=== PATIENT | male | born 1995 | race American Indian/Alaskan Native ===

== ENCOUNTER 2021-11-15 21:55 | Emergency (ER) | payer SELFPAY ==
[2021-11-15] MEDS ORDERED: TETANUS,DIPH,PERTUSS(ACELL) VACCINE 0.5 ML SYRINGE IM ONE (22:17)
[2021-11-15] MEDS ORDERED: LIDOCAINE (1%) 10 MG/1 ML VIAL 20 ML MDV INFILTRATI ONE (22:17)
[2021-11-15] MEDS ORDERED: IBUPROFEN 600 MG TAB PO ONE (22:17)
[2021-11-15] MEDS ORDERED: cephALEXin 500 MG CAP PO ONE (22:54)
--- NOTE | 2021-11-15 22:59 | Emergency Department Report ---
- General Chief Complaint: Wound/Laceration Stated Complaint: RT THUMB LACERATION Source: patient Mode of arrival: Ambulatory Limitations: No Limitations - History of Present Illness Initial Comments: Patient is a 26-year-old male with no past medical history presents to the ED with complaint of acute onset persistent painful bleeding right thumb laceration wound after he accidentally cut his right thumb while cutting a piece of chicken at home about 1 hour ago. Patient states that he is up-to-date with all his tetanus vaccinations. Patient denies numbness and tingling or weakness of right hand or right thumb, syncope, chest pain, shortness of breath, nausea and vomiting. -: hour(s) (1) Location: other (right thumb) Extremity Location: Right: Hand (right thumb laceration) Place: home Patient Tetanus UTD: Yes Context: accidental, sharp object use Associated Symptoms: pain. denies: loss of feeling/numbness, suspect foreign body present, unable to move injured part, nausea/vomiting - Related Data Previous Rx's Medication Instructions Recorded Last Taken Type Ibuprofen [Motrin] 800 mg PO Q8HR PRN #30 tablet 11/15/21 Unknown Rx cephALEXin [Keflex] 500 mg PO Q8HR #30 cap 11/15/21 Unknown Rx Allergies Allergy/AdvReac Type Severity Reaction Status Date / Time No Known Allergies Allergy Unverified 11/15/21 22:11 ED Review of Systems ROS: Stated complaint: RT THUMB LACERATION Other details as noted in HPI Constitutional: denies: chills, fever Eyes: denies: eye pain, eye discharge, vision change ENT: denies: ear pain, throat pain Respiratory: denies: cough, shortness of breath, wheezing Cardiovascular: denies: chest pain, palpitations Endocrine: no symptoms reported Gastrointestinal: denies: abdominal pain, nausea, diarrhea Genitourinary: denies: urgency, dysuria Musculoskeletal: arthralgia (Right thumb pain due to bleeding laceration wound). denies: back pain, joint swelling Skin: other (Bleeding right thumb laceration wound). denies: rash, lesions Neurological: denies: headache, weakness, paresthesias Psychiatric: denies: anxiety, depression Hematological/Lymphatic: denies: easy bleeding, easy bruising ED Past Medical Hx - Past Medical History Previous Medical History?: No - Surgical History Past Surgical History?: Yes Additional Surgical History: knee surgery - Medications Home Medications: Home Medications Medication Instructions Recorded Confirmed Last Taken Type Ibuprofen [Motrin] 800 mg PO Q8HR PRN #30 tablet 11/15/21 Unknown Rx cephALEXin [Keflex] 500 mg PO Q8HR #30 cap 11/15/21 Unknown Rx ED Physical Exam - General Limitations: No Limitations General appearance: alert, in no apparent distress - Head Head exam: Present: atraumatic, normocephalic, normal inspection - Eye Eye exam: Present: normal appearance, PERRL, EOMI Pupils: Present: normal accommodation - ENT ENT exam: Present: normal exam, normal orophraynx, mucous membranes moist, TM's normal bilaterally, normal external ear exam - Neck Neck exam: Present: normal inspection, full ROM. Absent: tenderness - Respiratory Respiratory exam: Present: normal lung sounds bilaterally. Absent: respiratory distress, wheezes, rhonchi, chest wall tenderness, accessory muscle use, decreased breath sounds, prolonged expiratory - Cardiovascular Cardiovascular Exam: Present: normal rhythm, tachycardia, normal heart sounds. Absent: systolic murmur, diastolic murmur, rubs, gallop - GI/Abdominal GI/Abdominal exam: Present: soft, normal bowel sounds. Absent: tenderness, guarding, rebound, hyperactive bowel sounds, organomegaly, bruit - Extremities Exam Extremities exam: Present: normal inspection, full ROM, tenderness (Palpable right thumb laceration due to a 6 cm laceration wound), normal capillary refill. Absent: pedal edema, joint swelling, calf tenderness - Back Exam Back exam: Present: normal inspection, full ROM. Absent: tenderness, CVA tenderness (R), CVA tenderness (L), muscle spasm, paraspinal tenderness, vertebral tenderness - Neurological Exam Neurological exam: Present: alert, oriented X3, CN II-XII intact, normal gait, reflexes normal - Psychiatric Psychiatric exam: Present: normal affect, normal mood, anxious - Skin Skin exam: Present: warm, dry, intact, normal color, other (Bleeding 6 cm laceration wound on right thumb with localized tenderness). Absent: rash ED Course Vital Signs 11/15/21 22:06 Temperature 98.6 F Pulse Rate 107 H Respiratory 16 Rate Blood Pressure 127/76 O2 Sat by Pulse 97 Oximetry - Laceration /Wound Repair Right Palm Finger Wound Location: upper extremity (Right thumb laceration on palmar side) Wound Length (cm): 6 Wound's Depth, Shape: superficial, irregular Wound Explored: contaminated Irrigated w/ Saline (ccs): 300 Anesthesia: 1% Lidocaine Volume Anesthetic (ccs): 7 Wound Debrided: extensive Wound Repaired With: sutures Suture Size/Type: 3:0, proline Number of Sutures: 14 Sterile Dressing Applied?: Yes Progress: The wound was cleaned extensively with normal saline and lidocaine 1% solution was used as a local anesthetic. When anesthesia was fully achieved, the wound was sutured with Prolene 3-0 sutures for a total of 14 sutures. The wound was then dressed appropriately and the patient tolerated the procedure well. ED Medical Decision Making - Medical Decision Making This is a 26-year-old male with no past medical history presents to the ED with complaint of acute onset persistent painful bleeding right thumb laceration wound after he accidentally cut his right thumb while cutting a piece of chicken at home about 1 hour ago. Patient states that he is up-to-date with all his tetanus vaccinations. In the ED, patient is alert and oriented x3 and is not in any distress but appears to be in pain and anxious, very cardiac but afebrile. The right thumb laceration wound was extensively debrided with normal saline and sutured per protocol out of location of lidocaine 1% solution as a digital block and also infiltrated around the wound for local anesthesia. Prolene 3-0 sutures were used for a total of 14 sutures. The wound was then dressed appropriately with 4 x 4 gauze and Kerlix and the patient tolerated procedure well. Patient was discharged home on pain medications and prophylactic antibiotics and advised to return to the ED immediately if symptoms get worse. Patient was advised return to the ED in 12 to 14 days for suture removal. - Differential Diagnosis Thumb laceration; thumb puncture wound; thumb injury; Critical care attestation.: If time is entered above; I have spent that time in minutes in the direct care of this critically ill patient, excluding procedure time. ED Disposition Clinical Impression: Laceration of right thumb with damage to nail Qualifiers: Encounter type: initial encounter Foreign body presence: without foreign body Qualified Code(s): S61.111A - Laceration without foreign body of right thumb with damage to nail, initial encounter Disposition: HOME / SELF CARE / HOMELESS Is pt being admited?: No Does the pt Need Aspirin: No Condition: Stable Instructions: Laceration Care, Adult, [id number], Sutures, Jessica, or Adhesive Wound Closure, [id number], Sutured Wound Care, [id number] Additional Instructions: Take medication with food, drink plenty of fluids and follow-up with primary care physician in 7 to 10 days for reevaluation. Return to the ED immediately if symptoms get worse. Otherwise return to the ED in 12 to 14 days for suture removal. Prescriptions: cephALEXin [Keflex] 500 mg PO Q8HR #30 cap Ibuprofen [Motrin] 800 mg PO Q8HR PRN #30 tablet PRN Reason: Pain , Severe (7-10) Referrals: [facility] [Provider Group] - 7-10 days Forms: Work/School Release Form(ED) Time of Disposition: 23:05 Print Language: ITALIAN
[2021-11-15 23:51] VITALS: BP 113/71
== END 2021-11-15 23:52 | disposition home or self-care (01) ==
LOC: ED 21:55
DX: S61.011A Laceration without foreign body of right thumb without damage to nail, initial encounter (principal); Z98.890 Other specified postprocedural states; Z79.899 Other long term (current) drug therapy; W26.0XXA Contact with knife, initial encounter; Y93.89 Activity, other specified; Y92.89 Other specified places as the place of occurrence of the external cause; Y99.8 Other external cause status
CPT/HCPCS: 99282

== ENCOUNTER 2021-11-30 11:30 | Emergency (ER) | payer SELFPAY ==
--- NOTE | 2021-11-30 14:05 | Emergency Department Report ---
Suture/Staple Removal - HPI Chief Complaint: Laceration/Recheck/Suture Stated Complaint: SUTURE REMOVAL Time Seen by Provider: 11/30/21 13:53 When Sutures or Jessica Placed: 5-7 Days Ago Wound Location: Right thumb ED Review of Systems ROS: Stated complaint: SUTURE REMOVAL Other details as noted in HPI Comment: All other systems reviewed and negative ED Past Medical Hx - Past Medical History Previous Medical History?: No - Surgical History Past Surgical History?: Yes Additional Surgical History: knee surgery - Family History Family history: no significant - Social History Smoking Status: Never Smoker Substance Use Type: None - Medications Home Medications: Home Medications Medication Instructions Recorded Confirmed Last Taken Type Clindamycin [Clindamycin CAP] 300 mg PO Q8H #30 cap 11/30/21 Unknown Rx Ibuprofen [Motrin] 800 mg PO Q8HR PRN #30 tablet 11/30/21 Unknown Rx Suture Removal Exam - Exam General: Vital signs noted. No distress. Alert and acting appropriately. Wound: Yes Tenderness, No Pathologic Erythema, No Drainage, No Pus, No Wound Dehiscence Other Systems: All other systems reviewed and are unremarkable. There is no purulence. There is no redness. However there is poorly healing tissue with some blistered areas. I am concerned that the wound may dehisce. ED Course Vital Signs 11/30/21 13:52 Temperature 97.9 F Pulse Rate 102 H Respiratory 18 Rate Blood Pressure 124/70 O2 Sat by Pulse 99 Oximetry ED Recheck MDM - Core Measures Measure Exclusions: not indicated - Differential Diagnosis Suture/Staple Removal - Medical Decision Making Sutures have been removed. Medicated for pain in the ER Wound care provided. Patient educated on wound care instructions Given my concern for wound infection patient is going home on clinda. He has been given Motrin for pain. Patient neurovascularly intact. Is full range of motion of the thumb. Rapid cap refill. The wound is not involving the nail. Patient being discharged home with discharge plan of care including diet, activity, medications and follow-up. He verbalizes understanding of plan of care Vital Signs 11/30/21 13:52 Temperature 97.9 F Pulse Rate 102 H Respiratory 18 Rate Blood Pressure 124/70 O2 Sat by Pulse 99 Oximetry Critical care attestation.: If time is entered above; I have spent that time in minutes in the direct care of this critically ill patient, excluding procedure time. ED Disposition Clinical Impression: Wound infection, Visit for suture removal Disposition: HOME / SELF CARE / HOMELESS Is pt being admited?: No Does the pt Need Aspirin: No Condition: Stable Instructions: Wound Infection Additional Instructions: MOTRIN OR TYLENOL FOR PAIN MED ORDERED TODAY FOLLOW UP WITH PCP IN 1 WEEK FOR RECHECK REFERRAL BELOW NO OINTMENT ON WOUND DIET AND ACTIVITY TOLERATED KEEP WOUND COVERED AT ALL TIMES CLEAN WOUND TWICE PER DAY WITH SOAP AND WATER APPLY DRY DRESSING Prescriptions: Clindamycin [Clindamycin CAP] 300 mg PO Q8H #30 cap Ibuprofen [Motrin] 800 mg PO Q8HR PRN #30 tablet PRN Reason: Pain, Moderate (4-6) Referrals: ANTHONY FITZPATRICK MD [Staff Physician] - 3-5 Days Time of Disposition: 14:05
[2021-11-30] MEDS ORDERED: HYDROcodone/ACETAMINOPHEN 5-325 MG TAB PO ONE (14:20)
[2021-11-30] MEDS ORDERED: LIDOCAINE-MPF (1%) 10 MG/1 ML VIAL 5 ML INFILTRATI ONE (14:20)
[2021-11-30] MEDS ORDERED: IBUPROFEN 800 MG TAB PO ONE (14:20)
[2021-11-30 15:54] VITALS: BP 114/80
== END 2021-11-30 15:54 | disposition home or self-care (01) ==
LOC: ED 11:30
DX: L08.9 Local infection of the skin and subcutaneous tissue, unspecified (principal)
CPT/HCPCS: 96372; 99282; J0696; J3490